=== PATIENT | female | born 1965 | race African-American/Black ===

== ENCOUNTER 2016-11-08 00:21 | Inpatient (IN) | payer OTHER ==
[~2016-11-08] VITALS: Ht 160 cm; Wt 74.6 kg
[~2016-11-08 00:21] MED LIST: METH4TAB2 PO; OXYC-323 PO
[2016-11-08] MEDS ORDERED: IV NORMAL SALINE 1000ML BAG 1,000 ML IV ONE (01:00)
[2016-11-08 01:16] LABS: BASO % 0 % (0-3); EOS % 3 % (0-3); HEMATOCRIT 41.5 % (36.0-47.0); HEMOGLOBIN 14.5 g/dL (12.0-15.5); LYMPH # 2.5 x10^3/uL (1.0-4.8); LYMPH % 35 % (24-48); MEAN CORPUSCULAR HEMOGLOBIN 29 pg (25-35); MEAN CORPUSCULAR HGB CONC 35 g/dL (31-37); MEAN CORPUSCULAR VOLUME 82 fL (79-100); MONO % 7 % (0-9); NEUT % 55 % (31-73); PLATELET COUNT 304 x10^3/uL (140-400); RED BLOOD COUNT 5.05 x10^6/uL (3.50-5.40); RED CELL DISTRIBUTION WIDTH 12.9 % (11.5-14.5); WHITE BLOOD COUNT 7.2 x10^3/uL (4.0-11.0)
[2016-11-08 01:30] LABS: CALCIUM 8.8 mg/dL (8.5-10.1); CREATININE 1.3 mg/dL (0.6-1.0); GFR 51.8; POTASSIUM 3.3 mmol/L (3.5-5.1)
[2016-11-08 01:34] LABS: ETHANOL 76 mg/dL (0-10)
[2016-11-08 01:36] LABS: ALBUMIN 3.1 g/dL (3.4-5.0); ALBUMIN/GLOBULIN RATIO 0.8 (1.0-1.7); TOTAL BILIRUBIN 0.2 mg/dL (0.2-1.0)
[2016-11-08 01:45] LABS: BILIRUBIN,URINE NEGATIVE (NEG); GLUCOSE,URINE NEGATIVE (NEG); NITRITE,URINE NEGATIVE (NEG); PROTEIN,URINE NEGATIVE (NEG-TRACE); UROBILINOGEN,URINE 0.2 mg/dL (0.2 mg/dL)
[2016-11-08 01:50] LABS: BACTERIA,URINE FEW /HPF (0-FEW); RBC,URINE 0 /HPF (0-2); SQUAMOUS EPITHELIAL CELL,UR MOD /LPF
[2016-11-08 01:51] LABS: BARBITURATES NEG (NEG); BENZODIAZEPINES NEG (NEG); CANNABINOIDS NEG (NEG); COCAINE POS (NEG); METHADONE NEG (NEG); OPIATES NEG (NEG); PHENCYCLIDINE NEG (NEG)
[2016-11-08] MEDS ORDERED: ONDANSETRON PF 4 MG/2 ML VIAL. IV PRN (03:30)
[2016-11-08] MEDS ORDERED: IV NORMAL SALINE 1000ML BAG 1,000 ML IV SCH (04:00)
--- NOTE | 2016-11-08 04:38 | PHYS DOC ---
Past Medical History Past Medical History: Depression Additional Past Medical Histor: INSOMNIA Past Surgical History: No Surgical History Alcohol Use: Heavy Drug Use: Cocaine, Marijuana Adult General Chief Complaint Chief Complaint: SUICDAL IDEATION HPI HPI Patient is a 51 year old female who has a history significant for depression the past since today by EMS secondary to drug overdose and suicidal ideation. History and physical exam is very limited secondary to the patient's unresponsive state and sedated state. It appears the patient approximately 11: 30 PM tonight took 17 Ambien and approximately 33 Seroquel 200 mg. Patient reports that she is depressed and she is suicidal. Patient reports that she was drinking alcohol tonight. Further history very limited secondary to the patient' s sedation and uncooperative state. Patient's physical exam is significant for the patient having normal vital signs. Patient's heart rate was 95 bpm. Respiratory rate was 18/m. Patient's blood pressure is stable. Patient's airway is intact. Patient does have a normal gag reflex. Patient is arousable to verbal and physical stimuli however her answers are somewhat difficult to understand with slurred speech. Patient is moving all extremities well. Patient is able to me her name. Patient does not know her location or the year at this time. Again physical exam very limited secondary to the patient's medical condition somnolence and recent overdose. Patient's ER workup consisting of normal labs. Patient had negative Tylenol. Patient's salicylate level was nontoxic. Patient's alcohol level was less than 80. Patient's EKG revealed normal sinus rhythm at a heart rate of [address]-T wave abnormalities. Patient does have mild prolongation of her QT interval. Assessment and plan This is a 51-year-old female who had a suicide attempt by drug overdose with Ambien and Seroquel. Patient is currently too somnolent for psychiatric assessment team to evaluate. Patient will be admitted to the ICU until she is more coherent and until she is more medically stable. Patient's QT was prolonged. This might be secondary to the Seroquel ingested that she took. Critical care time of 35 minutes were utilizing a treatment and management of this patient care exclusive of all procedures. Patient's airway was monitored. Patient's vital signs were monitored closely. Patient will be admitted to the ICU for further evaluation. Review of Systems Review of Systems Unable to obtain secondary to the patient's somnolence. Current Medications Current Medications Current Medications Medications (Trade) Dose Ordered Sig/Casimiro Start Time Stop Time Status Last Admin Dose Admin Ondansetron HCl (Zofran) 4 mg PRN Q8HRS PRN 11/08/16 03:30 11/09/16 03:29 Sodium Chloride 1,000 ml @ 125 mls/hr Q8H 11/08/16 04:00 11/09/16 03:59 11/08/16 04:00 125 MLS/HR Allergies Allergies Allergies Coded Allergies Type Severity Reaction Last Updated Verified acetaminophen Allergy Intermediate 03/05/16 Yes hydrocodone Allergy Intermediate 03/05/16 Yes Physical Exam Physical Exam Constitutional: Well developed, well nourished, no acute distress, non-toxic appearance. [] HENT: Normocephalic, atraumatic, bilateral external ears normal, oropharynx moist, no oral exudates, nose normal. [] Eyes: PERRLA, EOMI, conjunctiva normal, no discharge. Pupils 3 mm bilaterally and reactive. [] Neck: Normal range of motion, no tenderness, supple, no stridor. [] Cardiovascular:Heart rate regular rhythm, Lungs & Thorax: Bilateral breath sounds clear to auscultation [] Abdomen: Bowel sounds normal, soft, no tenderness, no masses, no pulsatile masses. [] Skin: Warm, dry, no erythema, no rash. [] Back: No tenderness, no CVA tenderness. [] Extremities: No tenderness, no cyanosis, no clubbing, ROM intact, no edema. [] Neurologic: Alert and oriented to person only, normal motor function, normal sensory function, difficult to assess secondary to the patient's somnolence and uncooperative state. Psychologic: Difficult to assess. Patient is depressed and made suicidal comments. Current Patient Data Vital Signs Vital Signs Date Time Temp Pulse Resp B/P (MAP) Pulse Ox O2 Delivery O2 Flow Rate FiO2 11/08/16 03:30 88 18 118/86 (97) 96 Room Air 11/08/16 00:22 98.7 98.7 Lab Values Laboratory Tests Test 11/08/16 00:43 11/08/16 01:05 11/08/16 01:30 POC Urine HCG, Qualitative Hcg negative (Negative) White Blood Count 7.2 x10^3/uL (4.0-11.0) Red Blood Count 5.05 x10^6/uL (3.50-5.40) Hemoglobin 14.5 g/dL (12.0-15.5) Hematocrit 41.5 % (36.0-47.0) Mean Corpuscular Volume 82 fL (79-100) Mean Corpuscular Hemoglobin 29 pg (25-35) Mean Corpuscular Hemoglobin Concent 35 g/dL (31-37) Red Cell Distribution Width 12.9 % (11.5-14.5) Platelet Count 304 x10^3/uL (140-400) Neutrophils (%) (Auto) 55 % (31-73) Lymphocytes (%) (Auto) 35 % (24-48) Monocytes (%) (Auto) 7 % (0-9) Eosinophils (%) (Auto) 3 % (0-3) Basophils (%) (Auto) 0 % (0-3) Neutrophils # (Auto) 3.9 x10^3uL (1.8-7.7) Lymphocytes # (Auto) 2.5 x10^3/uL (1.0-4.8) Monocytes # (Auto) 0.5 x10^3/uL (0.0-1.1) Eosinophils # (Auto) 0.2 x10^3/uL (0.0-0.7) Basophils # (Auto) 0.0 x10^3/uL (0.0-0.2) Sodium Level 140 mmol/L (136-145) Potassium Level 3.3 mmol/L (3.5-5.1) L Chloride Level 103 mmol/L (98-107) Carbon Dioxide Level 25 mmol/L (21-32) Anion Gap 12 (6-14) Blood Urea Nitrogen 23 mg/dL (7-20) H Creatinine 1.3 mg/dL (0.6-1.0) H Estimated GFR (Cockcroft-Gault) 51.8 BUN/Creatinine Ratio 18 (6-20) Glucose Level 121 mg/dL (70-99) H Calcium Level 8.8 mg/dL (8.5-10.1) Total Bilirubin 0.2 mg/dL (0.2-1.0) Aspartate Amino Transferase (AST) 16 U/L (15-37) Alanine Aminotransferase (ALT) 29 U/L (14-59) Alkaline Phosphatase 62 U/L (46-116) Total Protein 7.0 g/dL (6.4-8.2) Albumin 3.1 g/dL (3.4-5.0) L Albumin/Globulin Ratio 0.8 (1.0-1.7) L Salicylates Level 3.9 mg/dL (2.8-20.0) Salicylate Last Dose Date Salicylate Last Dose Time Acetaminophen Level < 2 mcg/ml (10-30) L Acetaminophen Last Dose Date Acetaminophen Last Dose Time Ethyl Alcohol Level 76 mg/dL (0-10) H Urine Collection Type Unknown Urine Color Yellow Urine Clarity Clear Urine pH 5.0 Urine Specific [place] 1.010 Urine Protein Negative mg/dL (NEG-TRACE) Urine Glucose (UA) Negative mg/dL (NEG) Urine Ketones (Stick) Negative mg/dL (NEG) Urine Blood Negative (NEG) Urine Nitrite Negative (NEG) Urine Bilirubin Negative (NEG) Urine Urobilinogen Dipstick 0.2 mg/dL (0.2 mg/dL) Urine Leukocyte Esterase Trace (NEG) Urine RBC 0 /HPF (0-2) Urine WBC 1-4 /HPF (0-4) Urine Squamous Epithelial Cells Mod /LPF Urine Bacteria Few /HPF (0-FEW) Urine Hyaline Casts Few /HPF Urine Mucus Mod /LPF Urine Opiates Screen Neg (NEG) Urine Methadone Screen Neg (NEG) Urine Barbiturates Neg (NEG) Urine Phencyclidine Screen Neg (NEG) Urine Amphetamine/Methamphetamine Neg (NEG) Urine Benzodiazepines Screen Neg (NEG) Urine Cocaine Screen Pos (NEG) Urine Cannabinoids Screen Neg (NEG) Urine Ethyl Alcohol Pos (NEG) Laboratory Tests 11/08/16 01:05 Laboratory Tests 11/08/16 01:05 EKG EKG [] Radiology/Procedures Radiology/Procedures [] Course & Med Decision Making Course & Med Decision Making Pertinent Labs and Imaging studies reviewed. (See chart for details) [] Dragon Disclaimer Dragon Disclaimer This electronic medical record was generated, in whole or in part, using a voice recognition dictation system. Departure Departure Impression: Primary Impression: Drug overdose Additional Impressions: Suicidal overdose Alcohol intoxication Altered mental status Delirium, drug-induced Disposition: ADMITTED INPATIENT Admitting Physician: Other (reusch) Condition: GUARDED Referrals: UNKNOWN PCP NAME (PCP) Problem Qualifiers Primary Impression: Drug overdose Encounter type: initial encounter Injury intent: intentional self-harm Qualified Codes: T50.902A - Poisoning by unspecified drugs, medicaments and biological substances, intentional self-harm, initial encounter Additional Impressions: Suicidal overdose Encounter type: initial encounter Qualified Codes: T50.902A - Poisoning by unspecified drugs, medicaments and biological substances, intentional self-harm , initial encounter Alcohol intoxication Complication of substance-induced condition: with unspecified complication Qualified Codes: F10.129 - Alcohol abuse with intoxication, unspecified Altered mental status Altered mental status type: delirium Qualified Codes: R41.0 - Disorientation , unspecified WILLIE FIGUEROA MD November 08, 2016 04:38
--- NOTE | 2016-11-08 05:07 | ACF ---
Admission Forms Criteria DRUG INGESTION OR OVERDOSE Clinical Indications for Admission to Inpatient Care ( Place 'X' for any and all applicable criteria): Admission is indicated for severe toxicity as indicated by ANY ONE of the following(1)(2)(3)(4)(5)(6): [X]I. Inpatient admission required rather than observation care (Also use Drug Ingestion or Overdose: Observation Care guideline as appropriate) because of ANY ONE of the following: [X]a) Altered mental status that is severe or persistent [ ]b) Clinical finding (eg, metabolic acidosis, hypoglycemia, bradycardia) that is severe or persistent [ ]c) Toxic drug level that is persistent [ ]d) Psychiatric risk status not acceptable for outpatient management [ ]e) Continuous intravenous infusion of anticoagulation, platelet inhibitor, vasoactive, or antiarrhythmic medication (15)(16) [ ]f) Other condition, treatment or monitoring requiring inpatient admission [ ]II. Respiratory abnormalities [ ]III. Specific finding indicating severe and likely prolonged drug toxicity [ ]IV. Hemodynamic instability [ ]V. Dangerous arrhythmia [ ]. Hypertension requiring inpatient treatment Extended stay beyond goal length of stay may be needed for (4): [ ]a) Neurologic or respiratory compromise [ ]b) Hemodynamic instability [ ]c) Persistent toxic drug levels (25) [ ]d) Severe drug toxicities or complications [ ]e) Ongoing antidote treatment (eg, acetaminophen overdose)(5) [ ]f) Older patients(65 years or older) The original [employer] content created by [employer] has been revised. The portions of the content which have been revised are identified through the use of italic text or in bold, and [facility] has neither reviewed nor approved the modified material. All other unmodified content is copyright [employer]. Please see references footnoted in the original [facility] edition 2016 Admission Criteria Met?: Yes ENEDINA COKER November 08, 2016 05:07
[2016-11-08] MEDS ORDERED: diphenhydrAMINE 50 MG/ML VIAL IVP ONE (06:45)
[2016-11-08] MEDS ORDERED: hydrALAZINE 20 MG/ML VIAL. IVP ONE (06:45)
[2016-11-08] MEDS ORDERED: PROCHLORPERAZINE 10 MG/2 ML VIAL. IV ONE (06:45)
--- NOTE | 2016-11-08 06:48 | EKG ---
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
[2016-11-08 07:30] VITALS: BP 149/97
[2016-11-08 09:00] VITALS: BP 127/99
[2016-11-08 10:00] VITALS: BP 147/91
[2016-11-08 11:00] VITALS: BP 126/97
[2016-11-08] MEDS: POTASSIUM CL 20MEQ-0.45% NACL 1,000 ML IV SCH (12:22)
[2016-11-08 13:00] VITALS: BP 126/71
[2016-11-08 20:00] VITALS: BP 157/90
[2016-11-09] VITALS: BP 128/88
[2016-11-09] MEDS: POTASSIUM CL 20MEQ-0.45% NACL 1,000 ML IV SCH (00:35)
--- NOTE | 2016-11-09 01:13 | CONS ---
DATE OF CONSULTATION: CHIEF COMPLAINT: Seroquel overdose with suicidal ideation. HISTORY OF PRESENT ILLNESS: This patient is a 51-year-old -Citizen Of [place] woman with past medical history of depression, who presented to the Emergency Room via EMS today with drug overdose with Seroquel, Ambien, alcohol and cocaine. She had been completely unresponsive at the time of arrival and was taken to the ICU for close monitoring. She now is a bit more responsive and answers questions with head movement. Apparently, the patient took 17 Ambien and 30+ Seroquel 200 mg. Further history is unknown as the patient is not verbally enough at this time, family not at bedside. PAST MEDICAL HISTORY: Depression and insomnia. FAMILY HISTORY: Unknown. SOCIAL HISTORY: Drug screen positive for cocaine and cannabis, history of alcohol abuse as well. ALLERGIES: TYLENOL AND HYDROCODONE. MEDICATIONS: MAR reconciled. REVIEW OF SYSTEMS: Unable to obtain secondary to sedation. PHYSICAL EXAMINATION: VITAL SIGNS: From today show a blood pressure of 127/99, heart rate of 71, respiratory rate at 16. She is afebrile. GENERAL: This is a well-nourished 51-year-old -[place]izen [place] woman lying in bed resting, opening her eyes for a few seconds to verbal command. HEENT: Shows no scleral icterus. NECK: Supple. LUNGS: Clear. HEART: Has regular rate and rhythm. ABDOMEN: Has positive bowel sounds, soft, nontender. EXTREMITIES: Show no edema. SKIN: Warm, soft and dry. LABORATORY DATA: CBC with a WBC of 7.2, hemoglobin 14.5, platelets of 304. Chemistries with a BUN and creatinine of 23 and 1.3, potassium at 3.3. Rest of the electrolytes within normal. LFTs within normal. Tox screen positive for alcohol, blood level of 76 also positive for cocaine. ASSESSMENT AND PLAN: The patient is a 71-year-old woman with depression who overdosed on Seroquel and temazepam. She is actually fairly stable considering. She was fairly sedated and seems to be starting to recover at this time. We will have the ____ team evaluate her. Apparently, she was seen in the Emergency Room obviously without evaluation ____ given her sedation. Depending on psych, she will be discharged from the hospital potentially to psych facility. From a medical standpoint, she is essentially stable, need to recover from her sedative overdose. For the time being, she will require 1:[address] CHAD WANG MD [address]: CAILIN/nts JOB#: [id number] / [id number]
[2016-11-09 04:00] VITALS: BP 148/92
[2016-11-09 07:02] LABS: CALCIUM 8.8 mg/dL (8.5-10.1); CREATININE 0.9 mg/dL (0.6-1.0); GFR 79.3; MAGNESIUM 1.9 mg/dL (1.8-2.4); POTASSIUM 4.1 mmol/L (3.5-5.1)
--- NOTE | 2016-11-09 08:44 | PDOC ---
PROGRESS NOTES Chief Complaint Chief Complaint SA, seroquel O/D ASSESSMENT AND PLAN: 1. Suicidal attempt: PAT team eval.ed yesterday: to [place] when bed available 2. Seroquel O/D: recovered w/o sequelae. 3. Knee pain: L>R. no swelling, but check US to r/o DVT. 4. Prophylaxis: H2B, lovenox ADDENDUM: US neg for DVT. Henderson's cyst on L History of Present Illness History of Present Illness c/o pain behind L knee, some on the right as well. no GI upset, no NEELY Vitals Vitals Vital Signs Date Time Temp Pulse Resp B/P (MAP) Pulse Ox O2 Delivery O2 Flow Rate FiO2 11/09/16 04:00 98.4 59 14 148/92 (110) 99 Room Air 98.4 Physical Exam General: Alert, Cooperative, No acute distress, Other (angry) Heart: Regular rate Lungs: Clear Abdomen: Normal bowel sounds, No tenderness Extremities: No clubbing, No edema, Other (mass palp in L poplietal fossa c/w Henderson's cyst) Labs LABS Laboratory Tests Test 11/09/16 06:45 Sodium Level 137 mmol/L (136-145) Potassium Level 4.1 mmol/L (3.5-5.1) Chloride Level 103 mmol/L (98-107) Carbon Dioxide Level 27 mmol/L (21-32) Anion Gap 7 (6-14) Blood Urea Nitrogen 16 mg/dL (7-20) Creatinine 0.9 mg/dL (0.6-1.0) Estimated GFR (Cockcroft-Gault) 79.3 Glucose Level 106 mg/dL (70-99) Calcium Level 8.8 mg/dL (8.5-10.1) Magnesium Level 1.9 mg/dL (1.8-2.4) CHAD WANG MD November 09, 2016 08:44
--- NOTE | 2016-11-09 08:56 | HP ---
ADMIT DATE: CHIEF COMPLAINT: Seroquel overdose with suicidal ideation. HISTORY OF PRESENT ILLNESS: This patient is a 51-year-old -[place] woman with past medical history of depression, who presented to the Emergency Room via EMS today with drug overdose with Seroquel, Ambien, alcohol and cocaine. She had been completely unresponsive at the time of arrival and was taken to the ICU for close monitoring. She now is a bit more responsive and answers questions with head movement. Apparently, the patient took 17 Ambien and 30+ Seroquel 200 mg. Further history is unknown as the patient is not verbally enough at this time, family not at bedside. PAST MEDICAL HISTORY: Depression and insomnia. FAMILY HISTORY: Unknown. SOCIAL HISTORY: Drug screen positive for cocaine and cannabis, history of alcohol abuse as well. ALLERGIES: TYLENOL AND HYDROCODONE. MEDICATIONS: MAR reconciled. REVIEW OF SYSTEMS: Unable to obtain secondary to sedation. PHYSICAL EXAMINATION: VITAL SIGNS: From today show a blood pressure of 127/99, heart rate of 71, respiratory rate at 16. She is afebrile. GENERAL: This is a well-nourished 51-year-old -[place] woman lying in bed resting, opening her eyes for a few seconds to verbal command. HEENT: Shows no scleral icterus. NECK: Supple. LUNGS: Clear. HEART: Has regular rate and rhythm. ABDOMEN: Has positive bowel sounds, soft, nontender. EXTREMITIES: Show no edema. SKIN: Warm, soft and dry. LABORATORY DATA: CBC with a WBC of 7.2, hemoglobin 14.5, platelets of 304. Chemistries with a BUN and creatinine of 23 and 1.3, potassium at 3.3. Rest of the electrolytes within normal. LFTs within normal. Tox screen positive for alcohol, blood level of 76 also positive for cocaine. ASSESSMENT AND PLAN: The patient is a 71-year-old woman with depression who overdosed on Seroquel and temazepam. She is actually fairly stable considering. She was fairly sedated and seems to be starting to recover at this time. We will have the PAT team evaluate her. Apparently, she was seen in the Emergency Room, obviously without Psych evaluation, given her sedation. Depending on psych, she will be discharged from the hospital potentially to psych facility. From a medical standpoint, she is essentially stable, need to recover from her sedative overdose. For the time being, she will require 1:[address]. CHAD WANG MD DR: CAILIN/nts JOB#: [id number] / [id number] CLAUDIA
--- NOTE | 2016-11-09 11:04 | RAD ---
Examination: Ultrasound bilateral lower extremity venous duplex History: History of pain behind the bilateral knees Comparison: None available Technique: Grayscale, color Doppler 2-D, spectral waveform is in the bilateral lower extremity venous system was performed Findings: The visualized common femoral vein, superior femoral vein, popliteal vein demonstrate normal compression and augmentation of flow. The visualized calf veins are patent. In the left popliteal region, there is a 4.0 x 2.5 x 1.1 cm cystic structure identified likely a Henderson's cyst. Impression: 1. No evidence of deep venous thrombosis identified in the visualized bilateral lower extremity venous system. 2. A 4 cm cyst is present identified in the left popliteal fossa probably a Henderson's cyst.
[2016-11-09] MEDS ORDERED: IBUPROFEN 400 MG TABLET. PO PRN (13:00)
[2016-11-09] MEDS ORDERED: ENOXAPARIN 40 MG/0.4 ML SYRINGE. SQ SCH (13:00)
[2016-11-09] MEDS ORDERED: FAMOTIDINE 20 MG TABLET. PO SCH (21:00)
--- NOTE | 2016-11-09 23:20 | DS ---
DATE OF DISCHARGE: 11/09/2016 CHIEF COMPLAINT: Suicidal attempt by the Seroquel overdose. HOSPITAL COURSE: The patient was brought in by EMS after ingesting temazepam as well as Seroquel with intentions of killing herself. Apparently this has been mixed with cocaine as well as alcohol. She had vomited some of this up and was somnolent at the time of arrival to the Emergency Room. Vital signs and breathing were stable. She was therefore admitted to the ICU under close observation with 1:1 sitter. She recovered without incidents within 12 hours and was clinically stable without any sequela. On day of discharge, she complained of especially left-sided knee pain. No swelling was noted in the calf, but Henderson's cyst was palpated. Ultrasound of both lower extremities was negative for clot. DISCHARGE EXAM: Please refer to note from same day. DISCHARGE DISPOSITION: To psychiatric hospital. DISCHARGE MEDICATIONS: Please refer to AUG. CHAD WANG MD DR: CAILIN/nts JOB#: [id number] / [id number]
== END 2016-11-09 15:42 | DRG 917 ==
LOC: ER 00:21 → 1 WEST ICU 03:19
PROVIDERS: ADMIT Internal Medicine Hematology & Oncology; ATTEND Internal Medicine Hematology & Oncology
DX: T42.6X2A Poisoning by other antiepileptic and sedative-hypnotic drugs, intentional self-harm, initial encounter (principal); G92 Toxic encephalopathy; N17.0 Acute kidney failure with tubular necrosis; T43.502A Poisoning by unspecified antipsychotics and neuroleptics, intentional self-harm, initial encounter; F10.129 Alcohol abuse with intoxication, unspecified; F32.9 Major depressive disorder, single episode, unspecified; M71.20 Synovial cyst of popliteal space [Baker], unspecified knee; F14.90 Cocaine use, unspecified, uncomplicated; G47.00 Insomnia, unspecified; Z79.899 Other long term (current) drug therapy; Z88.8 Allergy status to other drugs, medicaments and biological substances; N18.2 Chronic kidney disease, stage 2 (mild)
CPT/HCPCS: 36415; 80048; 80053; 80329; 81001; 81025; 83735; 85027; 87086; 87641; 93005; 93970; 96360; 96361; G0480; G0481; J7030; 99285-25

== ENCOUNTER 2018-09-22 14:22 | Emergency (ER) | payer OTHER ==
[~2018-09-22] VITALS: Ht 160 cm; Wt 79.4 kg
[~2018-09-22 14:22] MED LIST changes: -OXYC-323 PO; +OXYC1TAB15 PO
[2018-09-22 14:30] VITALS: BP 184/104
[2018-09-22] MEDS ORDERED: KETOROLAC 15 MG/ML VIAL. IV ONE (15:15)
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
[2018-09-22 15:57] LABS: BILIRUBIN,URINE NEGATIVE (NEG); CLARITY,URINE CLEAR; COLOR,URINE YELLOW; NITRITE,URINE NEGATIVE (NEG); PROTEIN,URINE NEGATIVE (NEG-TRACE); UROBILINOGEN,URINE 0.2 mg/dL (0.2 mg/dL)
[2018-09-22 16:08] LABS: SQUAMOUS EPITHELIAL CELL,UR FEW /LPF
[2018-09-22 16:09] LABS: BACTERIA,URINE 0 /HPF (0-FEW); RBC,URINE OCC /HPF (0-2)
--- NOTE | 2018-09-22 16:16 | RAD ---
CHEST PA LATERAL History: left sided chest pain Comparison: May 06, 2010 Findings: 2 views of the chest are submitted. There is no pleural fluid, pneumothorax, lobar infiltrate. Heart size is stable. There is some atherosclerotic calcification near aortic arch. Impression: 1. There is no lobar infiltrate or pleural fluid. Electronically signed by: Manuel Castillo MD (09/22/2018 4:13 PM) [facility]
[2018-09-22 17:08] LABS: BASO # 0.1 x10^3/uL (0.0-0.2); BASO % 1 % (0-3); EOS # 0.2 x10^3/uL (0.0-0.7); EOS % 2 % (0-3); HEMATOCRIT 41.4 % (36.0-47.0); HEMOGLOBIN 13.8 g/dL (12.0-15.5); LYMPH # 2.8 x10^3/uL (1.0-4.8); LYMPH % 31 % (24-48); MEAN CORPUSCULAR HEMOGLOBIN 28 pg (25-35); MEAN CORPUSCULAR HGB CONC 33 g/dL (31-37); MEAN CORPUSCULAR VOLUME 84 fL (79-100); MONO # 0.9 x10^3/uL (0.0-1.1); MONO % 10 % (0-9); NEUT # 5.1 x10^3uL (1.8-7.7); NEUT % 57 % (31-73); PLATELET COUNT 268 x10^3/uL (140-400); RED BLOOD COUNT 4.92 x10^6/uL (3.50-5.40); RED CELL DISTRIBUTION WIDTH 12.9 % (11.5-14.5)
[2018-09-22 17:14] LABS: PROTHROMBIN TIME PATIENT 12.5 SEC (11.7-14.0)
[2018-09-22 17:15] LABS: CREATININE 0.9 mg/dL (0.6-1.0); GFR 78.7; POTASSIUM 3.7 mmol/L (3.5-5.1)
[2018-09-22 17:21] LABS: ALBUMIN 3.4 g/dL (3.4-5.0); ALBUMIN/GLOBULIN RATIO 0.9 (1.0-1.7); MAGNESIUM 2.2 mg/dL (1.8-2.4); TOTAL BILIRUBIN 0.3 mg/dL (0.2-1.0)
[2018-09-22] MEDS ORDERED: MELO7.5T29 PO (17:48)
--- NOTE | 2018-09-23 09:42 | EKG ---
[facility] [address] [place] [address] Test Date: 2018-09-22 Test Time: 14:43:18 Pat Name: IRMA COBURN Department: Room: Gender: F Guide Excursion: : 1965 Requested By: HOWARD GARRISON Order Number: [id number] Reading MD: Aniket Mejias MD Measurements Intervals [place] Rate: 77 P: 26 MI: 190 QRS: -24 QRSD: 86 T: 66 QT: 404 QTc: 459 Interpretive Statements SINUS RHYTHM VENTRICULAR PREMATURE COMPLEX(ES) LAD Electronically Signed On 09-24-2018 14:35:19 CDT by Aniket Mejias MD
== END 2018-09-22 18:13 | disposition home or self-care (01) ==
LOC: ER 14:22
DX: S20.212A Contusion of left front wall of thorax, initial encounter (principal); S20.111A Abrasion of breast, right breast, initial encounter; F10.20 Alcohol dependence, uncomplicated; Y90.9 Presence of alcohol in blood, level not specified; F17.200 Nicotine dependence, unspecified, uncomplicated; Z88.5 Allergy status to narcotic agent; Z88.6 Allergy status to analgesic agent; V49.88XA Car occupant (driver) (passenger) injured in other specified transport accidents, initial encounter; Y93.89 Activity, other specified; Y92.488 Other paved roadways as the place of occurrence of the external cause; Y99.8 Other external cause status
CPT/HCPCS: 36415; 71046; 80053; 81001; 83690; 83735; 83880; 84484; 85025; 85610; 87086; 93005; 96374; 99284; J1885